=== PATIENT | female | born 1990 | race Hispanic/Latino ===

== ENCOUNTER 2024-07-23 08:26 | Inpatient (IN) | payer MEDICAID ==
[~2024-07-23] VITALS: Ht 163.8 cm; Wt 64.6 kg
[~2024-07-23 08:26] MED LIST: PREN-64 PO
--- NOTE | 2024-07-23 08:33 | NUR ---
PT JUST NOW PLACED IN MY HALLWAY C1
[2024-07-23 08:55] LABS: APPEARANCE,URINE CLEAR (CLEAR); BILIRUBIN,URINE NEGATIVE (NEGATIVE); COLOR,URINE YELLOW (YELLOW); GLUCOSE, URINE (UA) NEGATIVE (NEGATIVE); KETONES,URINE 60 mg/dL (NEGATIVE); LEUKOCYTE ESTERASE ,URINE NEGATIVE Leu/uL (NEGATIVE); NITRATE,URINE NEGATIVE (NEGATIVE); OCCULT BLOOD,URINE LARGE (NEGATIVE); PH,URINE 6.5 (5.0-8.0); PROTEIN,URINE 70 mg/dL (NEGATIVE)
[2024-07-23 09:00] LABS: ADD UA MICROSCOPIC YES
[2024-07-23 09:02] LABS: BACTERIA,URINE RARE /HPF (None Seen); MUCUS,URINE RARE LPF (None Seen); RBC,URINE TNTC /HPF (0-1); SQUAMOUS EPITHELIAL CELL,UR MOD /HPF (0-2)
[2024-07-23] MEDS: CEFTRIAXONE 2GM VIAL IVPB ONE (09:14)
[2024-07-23] MEDS: 0.9%NACL 1000ML 1,000 ML IV ONE (09:15)
[2024-07-23] MEDS: acetaMINOPHEN 500 MG TABLET PO ONE (09:24)
[2024-07-23] MEDS: acetaMINOPHEN 500 MG TABLET ONE (09:24)
[2024-07-23 09:25] LABS: INFLUENZA TYPE A Negative For Type A (NEGATIVE); INFLUENZA TYPE B Negative For Type B (NEGATIVE)
[2024-07-23 09:26] LABS: COVID19 (SARS ANTIGEN RAPID) PRESUMPTIVE NEGATIVE (NEGATIVE)
[2024-07-23 09:33] LABS: BASOPHILS # (AUTO) 0.01 K/uL (0.00-0.20); BASOPHILS % (AUTO) 0.1 % (0.0-5.0); HEMATOCRIT 41.5 % (36-48); IMMATURE GRANULOCYTE ABSOLUTE 0.03 K/uL (0-1); LYMPHOCYTES # (AUTO) 0.6 K/uL (1.0-4.8); LYMPHOCYTES % (AUTO) 7.4 % (21.0-51.0); MEAN CORPUSCULAR HEMOGLOBIN 30.4 pg (27.0-33.0); MEAN CORPUSCULAR VOLUME 89.4 fL (79-99); MONOCYTES # (AUTO) 0.3 K/uL (0.1-1.0); MONOCYTES % (AUTO) 4.4 % (3.0-13.0); NEUTROPHILS # (AUTO) 6.7 K/uL (1.8-7.7); NEUTROPHILS % (AUTO) 87.7 % (40.0-77.0); PLATELET COUNT (AUTO) 196 K/uL (130-400); RED BLOOD CELL COUNT(AUTO) 4.64 MIL/uL (4.00-5.50); RED CELL DISTRIBUTION WIDTH 11.9 % (11.0-15.5); WHITE BLOOD COUNT (AUTO) 7.7 K/uL (4.8-10.8)
[2024-07-23 09:37] LABS: CREATININE 0.8 mg/dL (0.5-1.0); POTASSIUM 3.9 mmol/L (3.5-5.1)
[2024-07-23 09:45] LABS: ALBUMIN 3.5 g/dL (3.5-5.0); BILIRUBIN,DIRECT 0.1 mg/dL (0.0-0.3); BILIRUBIN,TOTAL 0.3 mg/dL (0.2-1.0); TOTAL PROTEIN, SERUM 8.3 g/dL (6.0-8.3)
--- NOTE | 2024-07-23 10:57 | ERN ---
ED Note History of Present Illness Stated Complaint: COUGH\CONGESTION\FEVER Chief Complaint: Fever Time Seen by MD: 08:33 Dictation: 33 y/o F with no PHMx presenting to the emergency department with cough cold congestion and fever over the past six days was given Z-Nikos at home by primary care doctor however symptoms have not improved, worsening cough, no abdominal pain, generalized weakness and body aches. 8/10 symptoms. Allergies: Coded Allergies: No Known Drug Allergies (Unverified Allergy, Unknown, 05/09/15) Home Meds Reported Medications Vit #76/Iron,Carb/FA (Prenatabs Rx Tablet) 1 Each Tablet, 1 EACH PO DAILY, TAB 05/12/15 Past Medical History Past Medical History: No Pertinent History Surgical History: None LMP: Jul 23, 2024 : 1 Para: 1 Aborts: 0 Review of System Dictation Constitutional: Per HPI Eyes: Negative for injury, pain,redness, and discharge ENT: Negative for injury,pain or swelling Cardiovascular: Negative for chest pain, palpitations, and edema Respiratory: Per HPI Abdomen/GI: Negative for abdominal pain, nausea, vomiting, diarrhea, and constipation Back: Negative for injury and pain : Negative for injury, bleeding and discharge MS/Extremity: Negative for injury and deformity Skin: Negative for rash, and discoloration Neuro: Negative for headache, weakness, numbness, tingling, and seizure Psych: Negative for suicide ideation, homicidal ideation, and hallucinations Initial Vital Sign VS Vital Signs Date Time Temp Pulse Resp B/P (MAP) Pulse Ox O2 Delivery O2 Flow Rate FiO2 07/23/24 08:27 102.9 154 16 124/82 98 Room Air* 0 21 Physical Exam Dictation General: awake, alert, febrile Head/Face: Normocephalic, atraumatic Eyes: PERRL, EOMI, vision at baseline ENT: oral cavity clear, TMs clear, no signs of infection Neck: Trachea midline, supple, no nuchal rigidity Cardiovascular: Tachycardic, normal S1/S2, No MRGs, no JVD Respiratory: CTAB, no respiratory distress, No rales or wheezes Abdomen: Soft, non-tender, non-distended, normal bowel sounds, no guarding or rebound. Skin: Warm, dry, normal turgor, no rash MS/Extremity: Pulses equal, no cyanosis, neurovascular intact, FROM Neuro: COAx4, GCS 15, strength 5/5, CN 2-12 intact, normal cerebellar exam, normal gait, Psych: Normal behavior, mood, and affect normal Results (Laboratory/Radiology) Laboratory/Radiology Laboratory Tests Test 07/23/24 08:37 07/23/24 08:50 07/23/24 09:10 Urine Color YELLOW (YELLOW) Urine Appearance CLEAR (CLEAR) Urine pH 6.5 (5.0-8.0) Urine Specific [place] 1.024 (1.001-1.031) Urine Protein 70 mg/dL (NEGATIVE) H Urine Glucose (UA) NEGATIVE mg/dL (NEGATIVE) Urine Ketones 60 mg/dL (NEGATIVE) H Urine Occult Blood LARGE (NEGATIVE) H Urine Nitrate NEGATIVE (NEGATIVE) Urine Bilirubin NEGATIVE mg/dL (NEGATIVE) Urine Urobilinogen 2.0 mg/dL (0.2-1.0) H Urine Leukocyte Esterase NEGATIVE Arpit/uL Urine RBC TNTC /HPF (0-1) H Urine WBC 2-5 /HPF (0-1) H Urine Squamous Epithelial Cells MOD /HPF (0-2) Urine Bacteria RARE /HPF (None Seen) Urine HCG, Qualitative NEGATIVE (NEGATIVE) Influenza Type A Antigen Negative For Type A Influenza Type B Antigen Negative For Type B SARS-CoV-2 Antigen (Rapid) PRESUMPTIVE NEGATIVE White Blood Count 7.7 K/uL (4.8-10.8) Red Blood Count 4.64 MIL/uL (4.00-5.50) Hemoglobin 14.1 g/dL (12.0-16.0) Hematocrit 41.5 % (36-48) Mean Corpuscular Volume 89.4 fL (79-99) Mean Corpuscular Hemoglobin 30.4 pg (27.0-33.0) Mean Corpuscular Hemoglobin Concent 34.0 g/dL (32.0-36.0) Red Cell Distribution Width 11.9 % (11.0-15.5) Platelet Count 196 K/uL (130-400) Mean Platelet Volume 9.2 fL (7.5-10.5) Immature Granulocyte % (Auto) 0.4 % (0-1) Neutrophils (%) (Auto) 87.7 % (40.0-77.0) H Lymphocytes (%) (Auto) 7.4 % (21.0-51.0) L Monocytes (%) (Auto) 4.4 % (3.0-13.0) Eosinophils (%) (Auto) 0.0 % (0.0-8.0) Basophils (%) (Auto) 0.1 % (0.0-5.0) Neutrophils # (Auto) 6.7 K/uL (1.8-7.7) Lymphocytes # (Auto) 0.6 K/uL (1.0-4.8) L Monocytes # (Auto) 0.3 K/uL (0.1-1.0) Eosinophils # (Auto) 0.00 K/uL (0.00-0.70) Basophils # (Auto) 0.01 K/uL (0.00-0.20) Absolute Immature Granulocyte (auto 0.03 K/uL (0-1) Nucleated Red Blood Cells 0.0 % (0.0-0.19) Sodium Level 133 mmol/L (136-145) L Potassium Level 3.9 mmol/L (3.5-5.1) Chloride Level 96 mmol/L (101-111) L Carbon Dioxide Level 31 mmol/L (21-32) Blood Urea Nitrogen 10 mg/dL (7-18) Creatinine 0.8 mg/dL (0.5-1.0) Glomerular Filtration Rate Calc 101 mL/min (>90) Random Glucose 118 mg/dL (70-105) H Lactic Acid Level 1.3 mmol/L (0.8-2.5) Total Calcium 8.7 mg/dL (8.5-10.1) Total Bilirubin 0.3 mg/dL (0.2-1.0) Direct Bilirubin 0.1 mg/dL (0.0-0.3) Aspartate Amino Transf (AST/SGOT) 23 U/L (10-37) Alanine Aminotransferase (ALT/SGPT) 22 U/L (12-78) Alkaline Phosphatase 61 U/L (50-136) Total Protein 8.3 g/dL (6.0-8.3) Albumin 3.5 g/dL (3.5-5.0) Labs Reviewed?: Yes X-RAY Comment: Chest x-ray reviewed and interpreted by me shows multi lobar pneumonia to left upper lobe and right lower lobe. ED Course ED Course Orders Procedure Category Date Status Time Influenza Type A & B, LAB 07/23/24 Complete Rapid 08:32 Covid19 (Sars Antigen LAB 07/23/24 Complete Rapid) 08:32 Urinalysis Profile LAB 07/23/24 Complete 08:40 Chest 1vw RAD 07/23/24 Taken 09:00 Blood Cult DARIUSZ 07/23/24 In Process 09:00 Cbc With Differential LAB 07/23/24 In Process 09:00 Hepatic Function Panel LAB 07/23/24 Complete 09:00 Basic Metabolic Panel LAB 07/23/24 Complete 09:00 Lactic Acid LAB 07/23/24 Complete 09:00 ,Urine Test LAB 07/23/24 Complete 09:00 Ceftriaxone 2gm Vial PHA 07/23/24 Complete (Rocephin 2gm Inj) 09:00 0.9%Nacl 1000ml (Ns PHA 07/23/24 Complete 1000ml) 09:00 Acetaminophen 500mg PHA 07/23/24 Complete Tab (Tylenol 500mg T 09:30 Acetaminophen 500mg PHA 07/23/24 Complete Tab (Tylenol 500mg T 09:22 Current Medications Medications (Trade) Dose Ordered Sig/Carmine Route PRN Reason Start Time Stop Time Status Last Admin Dose Admin Acetaminophen (TYLenol 500MG TAB) 500 mg STK-MED ONCE .ROUTE 07/23/24 09:22 07/23/24 09:23 DC Acetaminophen (TYLenol 500MG TAB) 1,000 mg ONCE ONCE PO 07/23/24 09:30 07/23/24 09:31 DC 07/23/24 09:24 Ceftriaxone Sodium (Rocephin 2gm Inj) 2 gm ONCE ONCE IVPB 07/23/24 09:00 07/23/24 09:03 DC 07/23/24 09:14 Sodium Chloride 1,000 ml @ 0 mls/hr ONCE ONCE IV 07/23/24 09:00 07/23/24 09:03 DC 07/23/24 09:15 Vital Signs Date Time Temp Pulse Resp B/P (MAP) Pulse Ox O2 Delivery O2 Flow Rate FiO2 07/23/24 09:24 102.9 07/23/24 08:27 102.9 148 16 124/82 95 Room Air 0 07/23/24 08:27 102.9 154 16 124/82 98 Room Air* 0 21 Medical Decision Making MDM MDM: Differential diagnosis: Rationale: Tests considered and ordered secondary to shared decision making include: labs, ECG and radiology Previous outside records reviewed: Old ER visits. Risk of complication and/or morbidity or mortality of patient management: None Medications-Per medication reconciliation Need for hospitalization: Patient does meet criteria for hospitalization. Need for emergency major/minor surgery: No There are no social concerns with this patient. Prescription drug management Prescriptions will include symptomatic care Patient's prior external medical records from other ER visits were reviewed by me as indicated. Prior testing and results from previous visits were reviewed. Prior tests were taken into account with medical decision making and resource utilization, independent historian/historians were used to obtain complete medical history. I independently interpreted the test that were performed, results were reviewed by me and considered findings on radiology if ordered. Medical management and examination interpretation discussions were had by me with other qualified healthcare professionals as indicated for the patient's care. 33-year-old female with can be acquired pneumonia and concern for clinical sepsis, given IV fluids and antibiotics admitting for further care and evaluation. DX & DISP Disposition: Inpatient Departure Impression: Primary Impression: CAP (community acquired pneumonia) Additional Impression: Sepsis Condition: Stable Referrals: SELF,REFERRAL (PCP) RONN BENNETT MD Jul 23, 2024 10:57
--- NOTE | 2024-07-23 10:57 | NUR ---
DR TODD CURRENTLY AT BEDSIDE SPEAKING W/PT.
[2024-07-23] MEDS: 0.9%NACL 1000ML 1,503 ML IV ONE (11:25)
[2024-07-23] MEDS: PANTOPrazole 40 MG/VIAL IVP SCH (11:25)
[2024-07-23] MEDS: ondanSETRON 4MG INJ IVP PRN (11:25)
[2024-07-23] MEDS: AZITHROMYCIN 500MG+NS 250ML 250 ML IVPB SCH (11:26)
[2024-07-23 11:27] LABS: HEMOGLOBIN A1C 5.2 % (4.0-6.0)
--- NOTE | 2024-07-23 11:28 | HMCIMG ---
CHEST 1VW HISTORY: Fever COMPARISON: None FINDINGS: A frontal projection of the chest was obtained. Left perihilar and right lower lobe pulmonary infiltrates are seen. There is dextroscoliosis. Hyperexpansion of both lungs are seen. The heart is borderline enlarged. No evidence of aortic calcification is seen. IMPRESSION: 1. Left perihilar and right lower lobe pulmonary infiltrates.
[2024-07-23] MEDS ORDERED: COMPOUND IV REFRIGERATED 1 EACH IVSOLN MISC PRN (11:30)
[2024-07-23 11:34] LABS: THYROID STIMULATING HORMONE 0.49 uIU/mL (0.36-3.74)
--- NOTE | 2024-07-23 11:53 | NUR ---
NON SLIP SOCKS APPLIED TO PATIENTS FEET.
--- NOTE | 2024-07-23 12:00 | NUR ---
PULMONARY CONSULT: SPOKE TO KOKO FROM [facility]
--- NOTE | 2024-07-23 12:05 | NUR ---
MEAL TRAY SET UP FOR PT AND PT NOW PLACED IN ED BED 10
--- NOTE | 2024-07-23 12:10 | NUR ---
REPORT ENDORSED TO ITA CARRION
[2024-07-23 12:34] LABS: INR 1.1 (0.85-1.15); PROTHROMBIN TIME 11.8 SEC (9.6-11.6)
[2024-07-23 12:35] LABS: PARTIAL THROMBOPLASTIN TIME 36.6 SEC (26.3-35.5)
--- NOTE | 2024-07-23 12:36 | HP ---
[facility] HISTORY AND PHYSICAL Date of Service: Jul 23, 2024 Time of Service: 12:31 HISTORY OF PRESENT ILLNESS: Date of service: 07/23/2024, patient was seen in ER hallway C This is a 33-year-old with no significant past medical history who presented to the ER with chief complaint of cough, congestion, fevers for the past six days. Patient has been having productive cough with pleuritic chest pain which has been nonresolving. Oral intake has been poor and patient reports having nausea at home. She reports that her child was recently sick with mononucleosis. She denies previous history of pneumonia or pulmonary comorbidities. Reports having generalized fatigue, malaise, and asthenia. She has been having fevers daily. Denies any pets at home On presentation to the hospital, patient was noted to be febrile with T-max of 103, heart rate of 148, and blood pressure of 124/82. Labs on presentation showed WBC count of 7700, hemoglobin of 14.1, platelet count of 240213. CMP on presentation showed sodium of 133, potassium 3.9, chloride of 96, creatinine of 0.8, and normal liver function test. Chest x-ray showed significant right lower lobe infiltrates concerning for developing community-acquired pneumonia, patient also noted to have patchy infiltrate of the left upper lobe. Patient will be admitted for further management of multifocal community-acquired pneumonia with underlying sepsis. Patient will receive IV fluid resuscitation, broad-spectrum antibiotics, we will also request consultation with pulmonology this admission. REVIEW OF SYSTEMS CONSTITUTIONAL: Fevers, chills, malaise, asthenia, fatigue NEUROLOGICAL: Denies headache, amaurosis fugax, motor weakness, sensory deficit, vertigo/spinning sensation, gait abnormalities, or tremors. ENT: No hearing loss, otalgia, otorrhea, rhinitis, rhinorrhea, hoarseness, or sore throat. CARDIOVASCULAR: Denies any exertional angina, dyspnea on exertion, orthopnea, paroxysmal nocturnal dyspnea, palpitations, life-threatening arrhythmias, claudication. PULMONARY: Cough, congestion, pleurisy SLEEP: Denies morning headaches, daytime somnolence or napping. Denies difficulty falling asleep, staying asleep, waking from sleep. Denies knowledge of snoring. GASTROINTESTINAL: Denies any type of dysphagia to either liquids or solids. Denies nausea, vomiting, pyrosis, early satiety, abdominal pain, diarrhea, constipation, or changes in stool consistency or caliber. Denies coffee-ground emesis, hematemesis, hematochezia, or melanotic stools. GENITOURINARY: Denies frequency, urgency, nocturia, hematuria or incontinence (Storage/Irritative symptoms.) Low urinary stream, straining to void, urinary intermittency or hesitancy, splitting of the voiding stream, terminal dribbling. ENDOCRINOLOGIC: Denies polyuria, polydipsia, polyphagia or heat/cold intolerances. HEMATOLOGIC: Denies thrombophilia/previous clots, or coagulopathy/bleeding disorders. ONCOLOGIC: Denies personal history of malignancy. DERMATOLOGIC: Denies rashes or pruritus. PSYCHIATRIC: Denies any suicidal or homicidal ideation. Denies hallucinations. PAST MEDICAL HISTORY: Denies significant past medical history PAST SURGICAL HISTORY: Denies history of previous surgeries PAST SOCIAL HISTORY: Denies active smoking or alcohol consumption FAMILY HISTORY: Denies pertinent family history Allergies: Denies significant drug allergies Medications: Denies being on outpatient home medications Coded Allergies: No Known Drug Allergies (Unverified Allergy, Unknown, 05/09/15) PHYSICAL EXAM GENERAL APPEARANCE: The patient is awake, alert, and oriented, in no acute c ardiopulmonary distress. NEUROLOGICAL: Cranial nerves II-XII grossly intact. Motor is 5/5 in bilateral upper and lower extremities proximal to distal. No sensory deficits. HEENT: Face is symmetric. Pupils are equal and reactive. Extraocular movements are intact. NECK: Supple. No JVD. No thyromegaly. No submental, submandibular, pre- /postauricular, occipital or supraclavicular lymphadenopathy. CHEST: Normal chest expansion. No Telemetry. LUNGS: Decreased breath sound of the right lung base with crackles, rhonchorous breath sounds which clears with coughing CARDIOVASCULAR: Regular. S1 and S2 normal. No appreciable rubs, murmurs or gallops. ABDOMEN: Soft, nontender, and nondistended. There is no rebound, voluntary guarding, or rigidity. : Deferred. No Teixeira. EXTREMITIES: Non-edematous and not cyanotic. No clubbing. Good capillary refill. SKIN: No skin breakdown. Vital Sign (Last 24 Hours) 07/23/24 11:45 Temp 99.0 Pulse 101 Resp 17 B/P (MAP) 115/72 Pulse Ox 97 O2 Delivery Room Air* O2 Flow Rate 0 FiO2 21 LABS: Laboratory: Test 07/23/24 09:16 07/23/24 09:10 07/23/24 08:50 07/23/24 08:37 Range/Units Monoscreen NEGATIVE NEGATIVE White Blood Count 7.7 4.8-10.8 K/uL Red Blood Count 4.64 4.00-5.50 MIL/uL Hemoglobin 14.1 12.0-16.0 g/dL Hematocrit 41.5 36-48 % Mean Corpuscular Volume 89.4 79-99 fL Mean Corpuscular Hemoglobin 30.4 27.0-33.0 pg Mean Corpuscular Hemoglobin Concent 34.0 32.0-36.0 g/dL Red Cell Distribution Width 11.9 11.0-15.5 % Platelet Count 196 130-400 K/uL Mean Platelet Volume 9.2 7.5-10.5 fL Immature Granulocyte % (Auto) 0.4 0-1 % Neutrophils (%) (Auto) 87.7 H 40.0-77.0 % Lymphocytes (%) (Auto) 7.4 L 21.0-51.0 % Monocytes (%) (Auto) 4.4 3.0-13.0 % Eosinophils (%) (Auto) 0.0 0.0-8.0 % Basophils (%) (Auto) 0.1 0.0-5.0 % Neutrophils # (Auto) 6.7 1.8-7.7 K/uL Lymphocytes # (Auto) 0.6 L 1.0-4.8 K/uL Monocytes # (Auto) 0.3 0.1-1.0 K/uL Eosinophils # (Auto) 0.00 0.00-0.70 K/uL Basophils # (Auto) 0.01 0.00-0.20 K/uL Absolute Immature Granulocyte (auto 0.03 0-1 K/uL Nucleated Red Blood Cells 0.0 0.0-0.19 % White Cell Morphology Comment See comments Erythrocyte Sedimentation Rate 62 H 0-20 MM/HR Sodium Level 133 L 136-145 mmol/L Potassium Level 3.9 3.5-5.1 mmol/L Chloride Level 96 L 101-111 mmol/L Carbon Dioxide Level 31 21-32 mmol/L Blood Urea Nitrogen 10 7-18 mg/dL Creatinine 0.8 0.5-1.0 mg/dL Glomerular Filtration Rate Calc 101 >90 mL/min Random Glucose 118 H 70-105 mg/dL Hemoglobin A1c 5.2 4.0-6.0 % Estimated Average Glucose (eAG) 103 70-126 mg/dL Lactic Acid Level 1.3 0.8-2.5 mmol/L Total Calcium 8.7 8.5-10.1 mg/dL Total Bilirubin 0.3 0.2-1.0 mg/dL Direct Bilirubin 0.1 0.0-0.3 mg/dL Aspartate Amino Transf (AST/SGOT) 23 10-37 U/L Alanine Aminotransferase (ALT/SGPT) 22 12-78 U/L Alkaline Phosphatase 61 50-136 U/L C-Reactive Protein, Quantitative 139.30 H 0.5-3.0 mg/L Total Protein 8.3 6.0-8.3 g/dL Albumin 3.5 3.5-5.0 g/dL Procalcitonin 0.14 0.05-0.5 ng/mL Thyroid Stimulating Hormone (TSH) 0.49 0.36-3.74 uIU/mL Influenza Type A Antigen Negative For Type A NEGATIVE Influenza Type B Antigen Negative For Type B NEGATIVE SARS-CoV-2 Antigen (Rapid) PRESUMPTIVE NEGATIVE NEGATIVE Urine Color YELLOW YELLOW Urine Appearance CLEAR CLEAR Urine pH 6.5 5.0-8.0 Urine Specific [place] 1.024 1.001-1.031 Urine Protein 70 H NEGATIVE mg/dL Urine Glucose (UA) NEGATIVE NEGATIVE mg/dL Urine Ketones 60 H NEGATIVE mg/dL Urine Occult Blood LARGE H NEGATIVE Urine Nitrate NEGATIVE NEGATIVE Urine Bilirubin NEGATIVE NEGATIVE mg/dL Urine Urobilinogen 2.0 H 0.2-1.0 mg/dL Urine Leukocyte Esterase NEGATIVE NEGATIVE Arpit/uL Urine RBC TNTC H 0-1 /HPF Urine WBC 2-5 H 0-1 /HPF Urine Squamous Epithelial Cells MOD 0-2 /HPF Urine Bacteria RARE None Seen /HPF Urine HCG, Qualitative NEGATIVE NEGATIVE Current Medications Medications (Trade) Dose Ordered Sig/Carmine Route PRN Reason Start Time Stop Time Status Last Admin Dose Admin Acetaminophen (TYLenol 500MG TAB) 500 mg Q6H PRN PO MILD PAIN (1-3) 07/23/24 11:30 08/22/24 11:29 Albuterol (DUOneb) 1 udvial Q6H PRN IH SHORTNESS OF BREATH 07/23/24 11:30 08/22/24 11:29 Azithromycin 250 ml @ 250 mls/hr Q24H IVPB 07/23/24 11:30 08/02/24 11:29 07/23/24 11:26 250 MLS/HR Budesonide (Pulmicort 0.5 Mg/2ml) 0.5 mg Q12H IH 07/23/24 11:30 08/22/24 11:29 Ceftriaxone Sodium (Rocephin 2gm Inj) 2 gm DAILY IVPB 07/24/24 09:00 08/03/24 08:59 Guaifenesin/ Dextromethorphan (RobiTUSSin DM 200/20MG 10ML) 10 ml Q6H PRN PO COUGH 07/23/24 11:30 08/22/24 11:29 Ondansetron HCl (zoFRAN 4MG INJ) 4 mg Q6H PRN IVP NAUSEA/VOMITING 07/23/24 11:30 08/22/24 11:29 07/23/24 11:25 4 MG Pantoprazole Sodium (PROTonix 40MG INJ) 40 mg Q24H IVP 07/23/24 11:30 08/22/24 11:29 07/23/24 11:25 40 MG Sodium Chloride 1,000 ml @ 75 mls/hr [id number] IV 07/23/24 11:30 08/22/24 11:29 DIAGNOSTICS / RADIOLOGY: SERVICE 0900 REASON: fever ORDERING PHYSICIAN: RONN BENNETT MD PROCEDURE: CXR1VW - CHEST 1VW CHEST 1VW HISTORY: Fever COMPARISON: None FINDINGS: A frontal projection of the chest was obtained. Left perihilar and right lower lobe pulmonary infiltrates are seen. There is dextroscoliosis. Hyperexpansion of both lungs are seen. The heart is borderline enlarged. No evidence of aortic calcification is seen. IMPRESSION: 1. Left perihilar and right lower lobe pulmonary infiltrates. DICTATED BY: TOMASA ROLDAN MD DATE: 07/23/241124 ELECTRONICALLY SIGNED BY: TOMASA ROLDAN MD DATE: 07/23/241127 ASSESSMENT: Sepsis secondary to multifocal community-acquired pneumonia, POA Acute hypoxemic respiratory failure, POA Multifocal community-acquired pneumonia (R>L), POA Hyponatremia, POA Dehydration, POA PLAN: Patient will be admitted to cardiac telemetry floor Patient received sepsis bolus of fluid 30 mL/kg and we will start maintenance IV fluid of NS at 75 mL/hour broad-spectrum antibiotics with Rocephin/azithromycin Obtain sputum culture, blood cultures, respiratory culture, we will also check for urine Streptococcus pneumoniae antigen, Legionella antigen testing, mycoplasma and chlamydia serologies We will request consultation with pulmonology We will monitor closely for development of complications of parapneumonic effusion etc. We will start patient on scheduled Pulmicort and nebulizers q.6 hours p.r.n. We will advanced diet as tolerated All labs will be repeated in the morning Anticipate hospitalization for 48-72 hours pending cultures and clinical improvement of pneumonia and sepsis Prophylaxis Protonix, DVT prophylaxis with Lovenox Date of service: 07/23/2024, Prognosis: Guarded, Plan of care was discussed with patient at bedside, Vern Saunders MD Advanced Care Planning: Which of the following were discussed: Hospice care: Yes __ No _X_ Therapeutic options: Yes _X_ No __ Advance directives: Yes _X_ No __ Other discussions: Discussed with who?: Patient Voluntary nature of this service was explained to the patient? Yes _x_ No __ Amount of time spent: 20 minutes VERN SAUNDERS MD Jul 23, 2024 12:36
--- NOTE | 2024-07-23 12:46 | NUR ---
PULMONARY CONSULT: KOKO JOHNSON WAS JUST IN TO ASSESS AND INTERVIEW PT.
--- NOTE | 2024-07-23 13:03 | EKG ---
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
--- NOTE | 2024-07-23 14:01 | NUR ---
DCP: HOME Pt lives with her 9yro son in an apt. Her son is being cared for by his father while she is here. Pt's is in [place]. Pt states she is independent of all her ADLS, no DME or in home care services. Pt has no insurance or PCP. Sw provided community resources. Pt uses [facility] for rx. DCP is home Addendum: 07/23/24 at 1401 by FRANCISCO ROLDAN Amended: Links added.
[2024-07-23 14:29] VITALS: PULSE 97
[2024-07-23] MEDS: IpraTROPium/alBUTERol SULFATE 3 ML SOLUTION IH PRN (14:29)
[2024-07-23] MEDS: BUDESONIDE 0.5 MG/2 ML INH IH SCH (14:29)
[2024-07-23] MEDS: guaiFENesin-DM 200/20MG 10ML PO PRN (17:14)
[2024-07-23] MEDS: acetaMINOPHEN 500 MG TABLET PO PRN (17:15)
[2024-07-23] MEDS: 0.9%NACL 1000ML 1,000 ML IV SCH (17:15)
--- NOTE | 2024-07-23 17:30 | NUR ---
CALLED REPORT AND PRIMARY FLOOR NURSE RAMIN WILL CALL BACK IN 10 MIN
--- NOTE | 2024-07-23 18:14 | CONS ---
[facility] CONSULTATION NOTE Date Patient Seen: Jul 23, 2024 Time of Visit: 1330 Supervising Physician: Dr. Valerio Reason for Consultation: Multifocal pneumonia Inpatient Consults: BIS PROBLEM LIST: Sepsis secondary to multifocal community-acquired pneumonia, POA Acute hypoxemic respiratory failure, POA Multifocal community-acquired pneumonia (R>L), POA Hyponatremia, POA Dehydration, POA HPI: This is a 33-year-old with no significant past medical history who presented to the ER with chief complaint of cough, congestion, fevers for the past six days. Patient has been having productive cough with pleuritic chest pain which has been nonresolving. Oral intake has been poor and patient reports having nausea at home. She reports that her child was recently sick with mononucleosis. She denies previous history of pneumonia or pulmonary comorbidities. Reports having generalized fatigue, malaise, and asthenia. She has been having fevers daily. Denies any pets at home PATIENT WAS SEEN AND EXAMINED AT BEDSIDE WITH NO FAMILY PRESENT. PATIENT IS AWAKE ALERT ABLE TO ANSWER SIMPLE QUESTIONS APPROPRIATELY. PATIENT CURRENTLY ON ROOM AIR APPEARS TO BE TOLERATING WELL. PATIENT DENIES ANY CHEST PAIN OR OR SHORTNESS OF BREADTH AT THIS TIME. PATIENT DENIES ANY NAUSEA VOMITING OR AB DOMINAL PAIN. PER PATIENT HAS BEEN SICK FOR ABOUT FIVE DAYS WITH FEVER AND COUGH, DENIED GO SEE PCP STATED WAS TRYING TO WAIT IT OUT, UNTIL COULD NOT TOLERATE ANYMORE. PATIENT DENIES ANY MEDICAL HISTORY, PATIENT DOES REPORT HER SON BEING SICK WITH MONO. PULMONOLOGY WERE CONSULTED FOR MULTIFOCAL PNEUMONIA THANK YOU FOR ALLOWING US TO PARTICIPATE IN THE CARE OF THIS PATIENT WE WILL CONTINUE TO FOLLOW UP PATIENT IS IN THE HOSPITAL. RECOMMENDATIONS LISTED BELOW PLAN SUMMARY Continue Rocephin2 g daily Continue azithromycin 500 mg daily Continue budesonide 0.5 mg q.12 hours Continue breathing treatments as needed Continue to monitor respiratory status and maintain adequate oxygenation Keep O2 sats greater or equal to 90% Recommend obtaining HIV screen Rest of the care per primary team PAST MEDICAL HX: see above PAST SURGICAL HX: noncontributory SOCIAL HISTORY: No tobacco, ETOH, or illicit drug use Coded Allergies: No Known Drug Allergies (Unverified Allergy, Unknown, 05/09/15) REVIEW OF SYSTEMS: 12 point ROS reviewed with patient. Pertinent positives mentioned above. Otherwise negative. PHYSICAL EXAM: GENERAL: alert, weak, awake oriented x 3 HEENT: EOMI, Sclera non icteric, moist mucosa NECK: Supple, no JVD, trachea midline LUNGS: Clear breath sounds bilaterally. No wheezes HEART: Regular rate and rhythm. Normal S1 and S2, without murmurs ABD: Abdomen soft, nontender. Bowel sounds present EXT: No clubbing cyanosis or edema NEURO: Alert and oriented to person, follows commands Vital Signs (last 8hr) Date Time Temp Pulse Resp B/P (MAP) Pulse Ox O2 Delivery O2 Flow Rate FiO2 07/23/24 17:15 103.5 07/23/24 15:00 99.5 104 18 111/70 98 Room Air* 0 21 07/23/24 14:29 97 07/23/24 11:45 99.0 101 17 115/72 97 Room Air* 0 21 LABS: Hematology Labs: Test 07/23/24 09:10 Range/Units White Blood Count 7.7 4.8-10.8 K/uL Red Blood Count 4.64 4.00-5.50 MIL/uL Hemoglobin 14.1 12.0-16.0 g/dL Hematocrit 41.5 36-48 % Mean Corpuscular Volume 89.4 79-99 fL Mean Corpuscular Hemoglobin 30.4 27.0-33.0 pg Mean Corpuscular Hemoglobin Concent 34.0 32.0-36.0 g/dL Red Cell Distribution Width 11.9 11.0-15.5 % Platelet Count 196 130-400 K/uL Mean Platelet Volume 9.2 7.5-10.5 fL Immature Granulocyte % (Auto) 0.4 0-1 % Neutrophils (%) (Auto) 87.7 H 40.0-77.0 % Lymphocytes (%) (Auto) 7.4 L 21.0-51.0 % Monocytes (%) (Auto) 4.4 3.0-13.0 % Eosinophils (%) (Auto) 0.0 0.0-8.0 % Basophils (%) (Auto) 0.1 0.0-5.0 % Neutrophils # (Auto) 6.7 1.8-7.7 K/uL Lymphocytes # (Auto) 0.6 L 1.0-4.8 K/uL Monocytes # (Auto) 0.3 0.1-1.0 K/uL Eosinophils # (Auto) 0.00 0.00-0.70 K/uL Basophils # (Auto) 0.01 0.00-0.20 K/uL Absolute Immature Granulocyte (auto 0.03 0-1 K/uL Nucleated Red Blood Cells 0.0 0.0-0.19 % White Cell Morphology Comment See comments Erythrocyte Sedimentation Rate 62 H 0-20 MM/HR Chemistry Labs: Test 07/23/24 09:10 Range/Units Sodium Level 133 L 136-145 mmol/L Potassium Level 3.9 3.5-5.1 mmol/L Chloride Level 96 L 101-111 mmol/L Carbon Dioxide Level 31 21-32 mmol/L Blood Urea Nitrogen 10 7-18 mg/dL Creatinine 0.8 0.5-1.0 mg/dL Glomerular Filtration Rate Calc 101 >90 mL/min Random Glucose 118 H 70-105 mg/dL Hemoglobin A1c 5.2 4.0-6.0 % Estimated Average Glucose (eAG) 103 70-126 mg/dL Lactic Acid Level 1.3 0.8-2.5 mmol/L Total Calcium 8.7 8.5-10.1 mg/dL Total Bilirubin 0.3 0.2-1.0 mg/dL Direct Bilirubin 0.1 0.0-0.3 mg/dL Aspartate Amino Transf (AST/SGOT) 23 10-37 U/L Alanine Aminotransferase (ALT/SGPT) 22 12-78 U/L Alkaline Phosphatase 61 50-136 U/L C-Reactive Protein, Quantitative 139.30 H 0.5-3.0 mg/L Total Protein 8.3 6.0-8.3 g/dL Albumin 3.5 3.5-5.0 g/dL Procalcitonin 0.14 0.05-0.5 ng/mL Thyroid Stimulating Hormone (TSH) 0.49 0.36-3.74 uIU/mL Coagulation Labs: Test 07/23/24 11:31 Range/Units Prothrombin Time 11.8 H 9.6-11.6 SEC Prothromb Time International Ratio 1.10 0.85-1.15 Activated Partial Thromboplast Time 36.6 H 26.3-35.5 SEC DIAGNOSTICS / RADIOLOGY RESULTS: na PLAN NEURO: Minimize central acting medications as possible. Maintain fall precautions, adequate lighting during the day PULMONARY: Supplemental 02 as needed. Maintain aspiration precautions at all times CARDIOVASCULAR: Follow hemodynamics. Vital signs per facility protocol GI & NUTRITION: Continue with nutritional support. Continue stool softeners and laxatives as needed. KIDNEYS & ELECTROLYTES: Strict monitoring of intake, output and overall fluid balance. Avoid nephrotoxic medications to the extent possible. Medications to be dosed according to renal function. Monitor electrolytes and replace as needed ENDOCRINE: Maintain blood glucose between 100-180 at all times. Hypoglycemia protocol in place INFECTIOUS DISEASE: Trend temperature, WBC and procalcitonin level Follow cultures, deescalate antibiotics as soon as possible. Panculture if new onset fever ONCOLOGY/HEMATOLOGY/COAGULATION: Monitor for s/s of bleeding Monitor hemoglobin, coagulation studies as needed SKIN: Pressure ulcer prevention per facility protocol Specialty mattress ORTHO/REHAB: Continue PT/OT Prophylaxis: Continue GI and DVT prophylaxis Code Status: Full Resuscitation Disposition: Per primary team Other: Case discussed with supervising physician plan of care agreed upon JENAE MCKEON Jul 23, 2024 18:14
[2024-07-23 18:18] VITALS: O2SAT 96
[2024-07-23] MEDS: ketOROlac 15MG/ML VIAL (15MG/ML) IV PRN (18:38)
[2024-07-23 19:22] VITALS: BP 109/65; PULSE 104; RESP 16; TEMP 99.3
[2024-07-23 19:27] LABS: HIV 1&2 ANTIBODY Non-Reactive (Negative); HIV-1 p24 Antigen Non-Reactive (Negative)
[2024-07-23 19:31] VITALS: PULSE 96; RESP 18
[2024-07-23] MEDS: ENOXAPARIN SODIUM 40 MG/0.4 ML SYRINGE SQ SCH (20:45)
[2024-07-23 23:00] VITALS: BP 98/59; PULSE 86; RESP 16; TEMP 97.8
[2024-07-24] VITALS (13 sets, daily range): BP systolic 110–141; BP diastolic 62–99; PULSE 86–119; RESP 16–18; TEMP 97.6–100; O2SAT 96–98
[2024-07-24 06:51] LABS: ALBUMIN 2.5 g/dL (3.5-5.0); BILIRUBIN,TOTAL 0.1 mg/dL (0.2-1.0); CREATININE 0.6 mg/dL (0.5-1.0); MAGNESIUM 1.7 mg/dL (1.80-2.40); POTASSIUM 3.5 mmol/L (3.5-5.1); TOTAL PROTEIN, SERUM 5.9 g/dL (6.0-8.3)
[2024-07-24 07:36] LABS: BASOPHILS # (AUTO) 0.01 K/uL (0.00-0.20); BASOPHILS % (AUTO) 0.2 % (0.0-5.0); EOSINOPHILS # (AUTO) 0.01 K/uL (0.00-0.70); EOSINOPHILS % (AUTO) 0.2 % (0.0-8.0); HEMATOCRIT 34.5 % (36-48); IMMATURE GRANULOCYTE ABSOLUTE 0.02 K/uL (0-1); LYMPHOCYTES % (AUTO) 20.1 % (21.0-51.0); MEAN CORPUSCULAR HEMOGLOBIN 29.9 pg (27.0-33.0); MEAN CORPUSCULAR VOLUME 90.6 fL (79-99); MONOCYTES # (AUTO) 0.3 K/uL (0.1-1.0); NEUTROPHILS # (AUTO) 3.6 K/uL (1.8-7.7); NEUTROPHILS % (AUTO) 73.1 % (40.0-77.0); PLATELET COUNT (AUTO) 168 K/uL (130-400); RED BLOOD CELL COUNT(AUTO) 3.81 MIL/uL (4.00-5.50); WHITE BLOOD COUNT (AUTO) 4.9 K/uL (4.8-10.8)
[2024-07-24] MEDS: CEFTRIAXONE 2GM VIAL IVPB SCH (09:06)
--- NOTE | 2024-07-24 11:58 | HMCIMG ---
CHEST 1VW HISTORY: Pneumonia COMPARISON: 07/23/2024 FINDINGS: A frontal projection of the chest was obtained. Bilateral pulmonary infiltrates are seen. The heart is normal in size. No evidence of aortic calcification is seen. IMPRESSION: 1. Bilateral pulmonary infiltrates are seen.
--- NOTE | 2024-07-24 12:39 | PN ---
[facility] PROGRESS NOTE Date of Service: Jul 24, 2024 Time of Service: 12:12 SUBJECTIVE: 07/24/2024 The patient is a 33-year-old female with no significant past medical history who presented to the ER yesterday with complaints of cough associated with pleuritic chest pain. Upon arrival to the ER, she was febrile to 103 F, with a HR of 148 bpm and a blood pressure of 124/82 mmHg. She was admitted for multifocal community-acquired pneumonia with underlying sepsis. Initial treatment included Rocephin, Azithromycin, corticosteroids. Today, the patient reports significant improvement. She no longer experiences pleuritic chest pain, and her fever has resolved. On physical examination, her lungs are clear to auscultation bilaterally, and her vital signs are stable: BP 110/62, HR 86 bpm, RR 16 breaths/min, Temperature 97.9 F. Urine culture results returned negative for Legionella. Laboratory results showed a decrease in inflammatory markers, with a CRP of 93.4 (previously 139.3) and ESR of 62. Hemoglobin is mildly reduced at 11.4 (previously 14.1) All other labs were unremarkable. The patient is being observed for further improvement in her pulmonary infection. Treatment will continue and her response to therapy will be closely monitored. REVIEW OF SYSTEMS CONSTITUTIONAL: Alert, oriented, and non-toxic appearing. NEUROLOGICAL: Denies headache, amaurosis fugax, motor weakness, sensory deficit, vertigo/spinning sensation, gait abnormalities, or tremors. ENT: No hearing loss, otalgia, otorrhea, rhinitis, rhinorrhea, hoarseness, or sore throat. CARDIOVASCULAR: Denies any exertional angina, dyspnea on exertion, orthopnea, paroxysmal nocturnal dyspnea, palpitations, life-threatening arrhythmias, claudication. PULMONARY: Cough, congestion, pleurisy SLEEP: Denies morning headaches, daytime somnolence or napping. Denies difficulty falling asleep, staying asleep, waking from sleep. Denies knowledge of snoring. GASTROINTESTINAL: Denies any type of dysphagia to either liquids or solids. Denies nausea, vomiting, pyrosis, early satiety, abdominal pain, diarrhea, constipation, or changes in stool consistency or caliber. Denies coffee-ground emesis, hematemesis, hematochezia, or melanotic stools. GENITOURINARY: Denies frequency, urgency, nocturia, hematuria or incontinence (Storage/Irritative symptoms.) Low urinary stream, straining to void, urinary intermittency or hesitancy, splitting of the voiding stream, terminal dribbling. ENDOCRINOLOGIC: Denies polyuria, polydipsia, polyphagia or heat/cold intolerances. HEMATOLOGIC: Denies thrombophilia/previous clots, or coagulopathy/bleeding disorders. ONCOLOGIC: Denies personal history of malignancy. DERMATOLOGIC: Denies rashes or pruritus. PSYCHIATRIC: Denies any suicidal or homicidal ideation. Denies hallucinations. PHYSICAL EXAM GENERAL APPEARANCE: The patient is awake, alert, and oriented, in no acute cardiopulmonary distress. NEUROLOGICAL: Cranial nerves II-XII grossly intact. Motor is 5/5 in bilateral upper and lower extremities proximal to distal. No sensory deficits. HEENT: Face is symmetric. Pupils are equal and reactive. Extraocular movements are intact. NECK: Supple. No JVD. No thyromegaly. No submental, submandibular, pre- /postauricular, occipital or supraclavicular lymphadenopathy. CHEST: Normal chest expansion. No Telemetry. LUNGS: Decreased breath sound of the right lung base with crackles, rhonchorous breath sounds which clears with coughing CARDIOVASCULAR: Regular. S1 and S2 normal. No appreciable rubs, murmurs or gallops. ABDOMEN: Soft, nontender, and nondistended. There is no rebound, voluntary guarding, or rigidity. : Deferred. No [place]. EXTREMITIES: Non-edematous and not cyanotic. No clubbing. Good capillary refill. SKIN: No skin breakdown. Vital Signs (last 8hr) Date Time Temp Pulse Resp B/P (MAP) Pulse Ox O2 Delivery O2 Flow Rate FiO2 07/24/24 08:13 97.9 86 16 110/62 99 Room Air 07/24/24 07:43 93 18 N/A Room Air 21 07/24/24 07:36 95 18 07/24/24 07:00 96 Room Air* 0 07/24/24 04:17 99.0 LABS: Laboratory: Test 07/24/24 07:23 07/24/24 06:10 07/23/24 11:31 07/23/24 09:16 Range/Units White Blood Count 4.9 # 4.8-10.8 K/uL Red Blood Count 3.81 L 4.00-5.50 MIL/uL Hemoglobin 11.4 L 12.0-16.0 g/dL Hematocrit 34.5 L 36-48 % Mean Corpuscular Volume 90.6 79-99 fL Mean Corpuscular Hemoglobin 29.9 27.0-33.0 pg Mean Corpuscular Hemoglobin Concent 33.0 32.0-36.0 g/dL Red Cell Distribution Width 12.0 11.0-15.5 % Platelet Count 168 130-400 K/uL Mean Platelet Volume 9.2 7.5-10.5 fL Immature Granulocyte % (Auto) 0.4 0-1 % Neutrophils (%) (Auto) 73.1 40.0-77.0 % Lymphocytes (%) (Auto) 20.1 L 21.0-51.0 % Monocytes (%) (Auto) 6.0 3.0-13.0 % Eosinophils (%) (Auto) 0.2 0.0-8.0 % Basophils (%) (Auto) 0.2 0.0-5.0 % Neutrophils # (Auto) 3.6 1.8-7.7 K/uL Lymphocytes # (Auto) 1.0 1.0-4.8 K/uL Monocytes # (Auto) 0.3 0.1-1.0 K/uL Eosinophils # (Auto) 0.01 0.00-0.70 K/uL Basophils # (Auto) 0.01 0.00-0.20 K/uL Absolute Immature Granulocyte (auto 0.02 0-1 K/uL Nucleated Red Blood Cells 0.0 0.0-0.19 % Sodium Level 140 136-145 mmol/L Potassium Level 3.5 3.5-5.1 mmol/L Chloride Level 106 101-111 mmol/L Carbon Dioxide Level 28 21-32 mmol/L Blood Urea Nitrogen 4 L 7-18 mg/dL Creatinine 0.6 0.5-1.0 mg/dL Glomerular Filtration Rate Calc 123 >90 mL/min Random Glucose 95 70-105 mg/dL Total Calcium 7.8 L 8.5-10.1 mg/dL Magnesium Level 1.70 L 1.80-2.40 mg/dL Total Bilirubin 0.1 #L 0.2-1.0 mg/dL Aspartate Amino Transf (AST/SGOT) 21 10-37 U/L Alanine Aminotransferase (ALT/SGPT) 14 # 12-78 U/L Alkaline Phosphatase 41 #L 50-136 U/L C-Reactive Protein, Quantitative 93.40 H 0.5-3.0 mg/L Total Protein 5.9 #L 6.0-8.3 g/dL Albumin 2.5 #L 3.5-5.0 g/dL Prothrombin Time 11.8 H 9.6-11.6 SEC Prothromb Time International Ratio 1.10 0.85-1.15 Activated Partial Thromboplast Time 36.6 H 26.3-35.5 SEC HIV (1&2) Antibody Non-Reactive Negative HIV P24 Antigen, Qualitative Non-Reactive Negative Monoscreen NEGATIVE NEGATIVE Test 07/23/24 09:10 07/23/24 08:50 07/23/24 08:37 Range/Units White Cell Morphology Comment See comments Erythrocyte Sedimentation Rate 62 H 0-20 MM/HR Hemoglobin A1c 5.2 4.0-6.0 % Estimated Average Glucose (eAG) 103 70-126 mg/dL Lactic Acid Level 1.3 0.8-2.5 mmol/L Direct Bilirubin 0.1 0.0-0.3 mg/dL Procalcitonin 0.14 0.05-0.5 ng/mL Thyroid Stimulating Hormone (TSH) 0.49 0.36-3.74 uIU/mL Influenza Type A Antigen Negative For Type A NEGATIVE Influenza Type B Antigen Negative For Type B NEGATIVE SARS-CoV-2 Antigen (Rapid) PRESUMPTIVE NEGATIVE NEGATIVE Urine Color YELLOW YELLOW Urine Appearance CLEAR CLEAR Urine pH 6.5 5.0-8.0 Urine Specific [place] 1.024 1.001-1.031 Urine Protein 70 H NEGATIVE mg/dL Urine Glucose (UA) NEGATIVE NEGATIVE mg/dL Urine Ketones 60 H NEGATIVE mg/dL Urine Occult Blood LARGE H NEGATIVE Urine Nitrate NEGATIVE NEGATIVE Urine Bilirubin NEGATIVE NEGATIVE mg/dL Urine Urobilinogen 2.0 H 0.2-1.0 mg/dL Urine Leukocyte Esterase NEGATIVE NEGATIVE Arpit/uL Urine RBC TNTC H 0-1 /HPF Urine WBC 2-5 H 0-1 /HPF Urine Squamous Epithelial Cells MOD 0-2 /HPF Urine Bacteria RARE None Seen /HPF Urine HCG, Qualitative NEGATIVE NEGATIVE Current Medications Medications (Trade) Dose Ordered Sig/Carmine Route PRN Reason Start Time Stop Time Status Last Admin Dose Admin Acetaminophen (TYLenol 500MG TAB) 500 mg Q6H PRN PO MILD PAIN (1-3) 07/23/24 11:30 08/22/24 11:29 07/24/24 02:52 500 MG Albuterol (DUOneb) 1 udvial Q6H PRN IH SHORTNESS OF BREATH 07/23/24 11:30 08/22/24 11:29 07/24/24 07:34 1 UDVIAL Azithromycin 250 ml @ 250 mls/hr Q24H IVPB 07/23/24 11:30 08/02/24 11:29 07/24/24 11:47 250 MLS/HR Budesonide (Pulmicort 0.5 Mg/2ml) 0.5 mg Q12H IH 07/23/24 11:30 08/22/24 11:29 07/24/24 07:34 0.5 MG Ceftriaxone Sodium (Rocephin 2gm Inj) 2 gm DAILY IVPB 07/24/24 09:00 08/03/24 08:59 07/24/24 09:06 2 GM Enoxaparin Sodium (Lovenox) 40 mg HS SQ 07/23/24 21:00 08/22/24 20:59 07/23/24 20:45 40 MG Guaifenesin/ Dextromethorphan (RobiTUSSin DM 200/20MG 10ML) 10 ml Q6H PRN PO COUGH 07/23/24 11:30 08/22/24 11:29 07/23/24 17:14 10 ML Ketorolac Tromethamine (toRADol) 15 mg Q12H PRN IV MODERATE PAIN (4-6) 07/23/24 18:30 07/26/24 18:30 07/24/24 07:06 15 MG Ondansetron HCl (zoFRAN 4MG INJ) 4 mg Q6H PRN IVP NAUSEA/VOMITING 07/23/24 11:30 08/22/24 11:29 07/23/24 11:25 4 MG Pantoprazole Sodium (PROTonix 40MG INJ) 40 mg Q24H IVP 07/23/24 11:30 08/22/24 11:29 07/24/24 11:46 40 MG Sodium Chloride 1,000 ml @ 75 mls/hr [id number] IV 07/23/24 11:30 08/22/24 11:29 07/24/24 04:06 75 MLS/HR DIAGNOSTICS / RADIOLOGY: PATIENT: VIOLET GEORGES MR#: [id number] : 1990 SEX: F AGE: 33 LOCATION: 2A ORDER 230 STATUS: ADM IN REPORT#: [id number] SERVICE 0600 REASON: assess for any interval worsening pnuemonia or pleural effusion ORDERING PHYSICIAN: TORRI TODD MD PROCEDURE: CXR1VW - CHEST 1VW CHEST 1VW HISTORY: Pneumonia COMPARISON: 07/23/2024 FINDINGS: A frontal projection of the chest was obtained. Bilateral pulmonary infiltrates are seen. The heart is normal in size. No evidence of aortic calcification is seen. IMPRESSION: 1. Bilateral pulmonary infiltrates are seen. DICTATED BY: TOMASA ROLDAN MD DATE: 07/24/241154 ELECTRONICALLY SIGNED BY: TOMASA ROLDAN MD DATE: 07/24/24 115 ASSESSMENT: Sepsis secondary to multifocal community-acquired pneumonia, POA Acute hypoxemic respiratory failure, POA Multifocal community-acquired pneumonia (R>L), POA Hyponatremia, POA Dehydration, POA PLAN: Patient will be admitted to cardiac telemetry floor Patient received sepsis bolus of fluid 30 mL/kg and we will start maintenance IV fluid of NS at 75 mL/hour broad-spectrum antibiotics with Rocephin/azithromycin We will continue recommendation from pulmonology continue monitor closely for development of complications of parapneumonic effusion etc. continue patient on scheduled Pulmicort and nebulizers q.6 hours p.r.n. All labs will be repeated in the morning Anticipate hospitalization for 48-72 hours pending cultures and clinical improvement of pneumonia and sepsis Prophylaxis Protonix, DVT prophylaxis with Lovenox ATTESTATION BY PHYSICIAN I have seen and examined the patient. I reviewed the documentation, medical decision making, and treatment plan as noted by the resident provider above. I agree with the findings and plan of care. Julia Griffin MD, GERARDO MD Jul 24, 2024 12:39
--- NOTE | 2024-07-24 15:32 | PN ---
[facility] PROGRESS NOTE Date Patient Seen: Jul 24, 2024 Time of Visit: 1137 Supervising Physician: Dr. Valerio Inpatient Consults: BIS PROBLEM LIST: Sepsis secondary to multifocal community-acquired pneumonia, POA Acute hypoxemic respiratory failure, POA Multifocal community-acquired pneumonia (R>L), POA Hyponatremia, POA Dehydration, POA INTERVAL HISTORY: 07/24 patient was seen examined at bedside with family present. Patient is awake alert able to answer simple questions appropriately. Patient is appears to be at visit patient denies chest pain or shortness of breadth. Denies nausea vomiting or abdominal pain. Patient states feeling better. Patient's CBC BNP. Patient's HIV screen nonreactive. Patient's mono screen negative. Patient to continue on IV antibiotics Rocephin2 g daily, azithromycin 500 mg daily. Blood cultures have been negative x1 day. From a pulmonary standpoint patient has remained stable is on room air. At this time pulmonary we will sign off thank you for us to participate care of this patient feel free to reconsult with any change in condition. Patient can be discharged on oral antibiotics Levaquin 750 mg to complete total of seven days. PLAN SUMMARY From a pulmonary standpoint patient has remained stable therefore this time pulmonology to sign off feel free to reconsult with any change in condition Patient can be discharged on oral Levaquin 750 mg daily to complete a total of seven days, 6 minute walk prior to discharge Continue Rocephin2 g daily Continue azithromycin 500 mg daily Continue budesonide 0.5 mg q.12 hours Continue breathing treatments as needed Continue to monitor respiratory status and maintain adequate oxygenation Keep O2 sats greater or equal to 90% Rest of the care per primary team REVIEW OF SYSTEMS: 12 point ROS reviewed with patient. Pertinent positives mentioned above. Otherwise negative. PHYSICAL EXAM: GENERAL: alert, weak, awake oriented x 3 HEENT: EOMI, Sclera non icteric, moist mucosa NECK: Supple, no JVD, trachea midline LUNGS: Clear breath sounds bilaterally. No wheezes HEART: Regular rate and rhythm. Normal S1 and S2, without murmurs ABD: Abdomen soft, nontender. Bowel sounds present EXT: No clubbing cyanosis or edema NEURO: Alert and oriented to person, follows commands Vital Signs (last 8hr) Date Time Temp Pulse Resp B/P (MAP) Pulse Ox O2 Delivery O2 Flow Rate FiO2 07/24/24 14:53 100.9 07/24/24 12:29 97.5 94 16 121/77 98 Room Air 07/24/24 08:13 97.9 86 16 110/62 99 Room Air 07/24/24 07:43 93 18 N/A Room Air 21 07/24/24 07:36 95 18 LABS: Hematology Labs: Test 07/24/24 07:23 07/23/24 09:10 Range/Units White Blood Count 4.9 # 4.8-10.8 K/uL Red Blood Count 3.81 L 4.00-5.50 MIL/uL Hemoglobin 11.4 L 12.0-16.0 g/dL Hematocrit 34.5 L 36-48 % Mean Corpuscular Volume 90.6 79-99 fL Mean Corpuscular Hemoglobin 29.9 27.0-33.0 pg Mean Corpuscular Hemoglobin Concent 33.0 32.0-36.0 g/dL Red Cell Distribution Width 12.0 11.0-15.5 % Platelet Count 168 130-400 K/uL Mean Platelet Volume 9.2 7.5-10.5 fL Immature Granulocyte % (Auto) 0.4 0-1 % Neutrophils (%) (Auto) 73.1 40.0-77.0 % Lymphocytes (%) (Auto) 20.1 L 21.0-51.0 % Monocytes (%) (Auto) 6.0 3.0-13.0 % Eosinophils (%) (Auto) 0.2 0.0-8.0 % Basophils (%) (Auto) 0.2 0.0-5.0 % Neutrophils # (Auto) 3.6 1.8-7.7 K/uL Lymphocytes # (Auto) 1.0 1.0-4.8 K/uL Monocytes # (Auto) 0.3 0.1-1.0 K/uL Eosinophils # (Auto) 0.01 0.00-0.70 K/uL Basophils # (Auto) 0.01 0.00-0.20 K/uL Absolute Immature Granulocyte (auto 0.02 0-1 K/uL Nucleated Red Blood Cells 0.0 0.0-0.19 % White Cell Morphology Comment See comments Erythrocyte Sedimentation Rate 62 H 0-20 MM/HR Chemistry Labs: Test 07/24/24 06:10 07/23/24 09:10 Range/Units Sodium Level 140 136-145 mmol/L Potassium Level 3.5 3.5-5.1 mmol/L Chloride Level 106 101-111 mmol/L Carbon Dioxide Level 28 21-32 mmol/L Blood Urea Nitrogen 4 L 7-18 mg/dL Creatinine 0.6 0.5-1.0 mg/dL Glomerular Filtration Rate Calc 123 >90 mL/min Random Glucose 95 70-105 mg/dL Total Calcium 7.8 L 8.5-10.1 mg/dL Magnesium Level 1.70 L 1.80-2.40 mg/dL Total Bilirubin 0.1 #L 0.2-1.0 mg/dL Aspartate Amino Transf (AST/SGOT) 21 10-37 U/L Alanine Aminotransferase (ALT/SGPT) 14 # 12-78 U/L Alkaline Phosphatase 41 #L 50-136 U/L C-Reactive Protein, Quantitative 93.40 H 0.5-3.0 mg/L Total Protein 5.9 #L 6.0-8.3 g/dL Albumin 2.5 #L 3.5-5.0 g/dL Hemoglobin A1c 5.2 4.0-6.0 % Estimated Average Glucose (eAG) 103 70-126 mg/dL Lactic Acid Level 1.3 0.8-2.5 mmol/L Direct Bilirubin 0.1 0.0-0.3 mg/dL Procalcitonin 0.14 0.05-0.5 ng/mL Thyroid Stimulating Hormone (TSH) 0.49 0.36-3.74 uIU/mL Coagulation Labs: Test 07/23/24 11:31 Range/Units Prothrombin Time 11.8 H 9.6-11.6 SEC Prothromb Time International Ratio 1.10 0.85-1.15 Activated Partial Thromboplast Time 36.6 H 26.3-35.5 SEC DIAGNOSTICS / RADIOLOGY RESULTS: na PLAN NEURO: Minimize central acting medications as possible. Maintain fall precautions, adequate lighting during the day PULMONARY: Supplemental 02 as needed. Maintain aspiration precautions at all times CARDIOVASCULAR: Follow hemodynamics. Vital signs per facility protocol GI & NUTRITION: Continue with nutritional support. Continue stool softeners and laxatives as needed. KIDNEYS & ELECTROLYTES: Strict monitoring of intake, output and overall fluid balance. Avoid nephrotoxic medications to the extent possible. Medications to be dosed according to renal function. Monitor electrolytes and replace as needed ENDOCRINE: Maintain blood glucose between 100-180 at all times. Hypoglycemia protocol in place INFECTIOUS DISEASE: Trend temperature, WBC and procalcitonin level Follow cultures, deescalate antibiotics as soon as possible. Panculture if new onset fever ONCOLOGY/HEMATOLOGY/COAGULATION: Monitor for s/s of bleeding Monitor hemoglobin, coagulation studies as needed SKIN: Pressure ulcer prevention per facility protocol Specialty mattress ORTHO/REHAB: Continue PT/OT Prophylaxis: Continue GI and DVT prophylaxis Code Status: Full Resuscitation Disposition: Per primary team Other: Case discussed with supervising physician plan of care agreed upon JENAE MCKEON Jul 24, 2024 15:32
[2024-07-25] VITALS (10 sets, daily range): BP systolic 102–120; BP diastolic 67–74; PULSE 69–106; RESP 16–20; TEMP 98–98.7; O2SAT 94–97
--- NOTE | 2024-07-25 14:51 | PN ---
[facility] PROGRESS NOTE Date of Service: Jul 25, 2024 Time of Service: 14:46 SUBJECTIVE: 07/24/2024 The patient is a 33-year-old female with no significant past medical history who presented to the ER yesterday with complaints of cough associated with pleuritic chest pain. Upon arrival to the ER, she was febrile to 103 F, with a HR of 148 bpm and a blood pressure of 124/82 mmHg. She was admitted for multifocal community-acquired pneumonia with underlying sepsis. Initial treatment included Rocephin, Azithromycin, corticosteroids. Today, the patient reports significant improvement. She no longer experiences pleuritic chest pain, and her fever has resolved. On physical examination, her lungs are clear to auscultation bilaterally, and her vital signs are stable: BP 110/62, HR 86 bpm, RR 16 breaths/min, Temperature 97.9 F. Urine culture results returned negative for Legionella. Laboratory results showed a decrease in inflammatory markers, with a CRP of 93.4 (previously 139.3) and ESR of 62. Hemoglobin is mildly reduced at 11.4 (previously 14.1) All other labs were unremarkable. The patient is being observed for further improvement in her pulmonary infection. Treatment will continue and her response to therapy will be closely monitored. 07/25 patient was evaluated this morning, she is feeling a lot better but she complained off burning sensation during azithromycin infusion. We will stop azithromycin and switched to p.o.. Patient now afebrile. WBC within normal limits. REVIEW OF SYSTEMS CONSTITUTIONAL: Alert, oriented, and non-toxic appearing. NEUROLOGICAL: Denies headache, amaurosis fugax, motor weakness, sensory deficit, vertigo/spinning sensation, gait abnormalities, or tremors. ENT: No hearing loss, otalgia, otorrhea, rhinitis, rhinorrhea, hoarseness, or sore throat. CARDIOVASCULAR: Denies any exertional angina, dyspnea on exertion, orthopnea, paroxysmal nocturnal dyspnea, palpitations, life-threatening arrhythmias, claudication. PULMONARY: Cough, congestion, pleurisy SLEEP: Denies morning headaches, daytime somnolence or napping. Denies difficulty falling asleep, staying asleep, waking from sleep. Denies knowledge of snoring. GASTROINTESTINAL: Denies any type of dysphagia to either liquids or solids. Denies nausea, vomiting, pyrosis, early satiety, abdominal pain, diarrhea, constipation, or changes in stool consistency or caliber. Denies coffee-ground emesis, hematemesis, hematochezia, or melanotic stools. GENITOURINARY: Denies frequency, urgency, nocturia, hematuria or incontinence (Storage/Irritative symptoms.) Low urinary stream, straining to void, urinary intermittency or hesitancy, splitting of the voiding stream, terminal dribbling. ENDOCRINOLOGIC: Denies polyuria, polydipsia, polyphagia or heat/cold intolerances. HEMATOLOGIC: Denies thrombophilia/previous clots, or coagulopathy/bleeding disorders. ONCOLOGIC: Denies personal history of malignancy. DERMATOLOGIC: Denies rashes or pruritus. PSYCHIATRIC: Denies any suicidal or homicidal ideation. Denies hallucinations. PHYSICAL EXAM GENERAL APPEARANCE: The patient is awake, alert, and oriented, in no acute cardiopulmonary distress. NEUROLOGICAL: Cranial nerves II-XII grossly intact. Motor is 5/5 in bilateral upper and lower extremities proximal to distal. No sensory deficits. HEENT: Face is symmetric. Pupils are equal and reactive. Extraocular movements are intact. NECK: Supple. No JVD. No thyromegaly. No submental, submandibular, pre- /postauricular, occipital or supraclavicular lymphadenopathy. CHEST: Normal chest expansion. No Telemetry. LUNGS: Decreased breath sound of the right lung base with crackles, rhonchorous breath sounds which clears with coughing CARDIOVASCULAR: Regular. S1 and S2 normal. No appreciable rubs, murmurs or gallops. ABDOMEN: Soft, nontender, and nondistended. There is no rebound, voluntary guarding, or rigidity. : Deferred. No Teixeira. EXTREMITIES: Non-edematous and not cyanotic. No clubbing. Good capillary refill. SKIN: No skin breakdown. Vital Signs (last 8hr) Date Time Temp Pulse Resp B/P (MAP) Pulse Ox O2 Delivery O2 Flow Rate FiO2 07/25/24 12:00 98.1 91 18 119/74 96 Room Air 21 07/25/24 08:00 98.2 89 18 109/67 94 Room Air 21 07/25/24 08:00 94 Room Air* 0 21 07/25/24 07:20 97 07/25/24 07:20 97 18 N/A Room Air 21 LABS: Laboratory: Test 07/24/24 07:23 12/6/24 06:10 Range/Units White Blood Count 4.9 # 4.8-10.8 K/uL Red Blood Count 3.81 L 4.00-5.50 MIL/uL Hemoglobin 11.4 L 12.0-16.0 g/dL Hematocrit 34.5 L 36-48 % Mean Corpuscular Volume 90.6 79-99 fL Mean Corpuscular Hemoglobin 29.9 27.0-33.0 pg Mean Corpuscular Hemoglobin Concent 33.0 32.0-36.0 g/dL Red Cell Distribution Width 12.0 11.0-15.5 % Platelet Count 168 130-400 K/uL Mean Platelet Volume 9.2 7.5-10.5 fL Immature Granulocyte % (Auto) 0.4 0-1 % Neutrophils (%) (Auto) 73.1 40.0-77.0 % Lymphocytes (%) (Auto) 20.1 L 21.0-51.0 % Monocytes (%) (Auto) 6.0 3.0-13.0 % Eosinophils (%) (Auto) 0.2 0.0-8.0 % Basophils (%) (Auto) 0.2 0.0-5.0 % Neutrophils # (Auto) 3.6 1.8-7.7 K/uL Lymphocytes # (Auto) 1.0 1.0-4.8 K/uL Monocytes # (Auto) 0.3 0.1-1.0 K/uL Eosinophils # (Auto) 0.01 0.00-0.70 K/uL Basophils # (Auto) 0.01 0.00-0.20 K/uL Absolute Immature Granulocyte (auto 0.02 0-1 K/uL Nucleated Red Blood Cells 0.0 0.0-0.19 % Sodium Level 140 136-145 mmol/L Potassium Level 3.5 3.5-5.1 mmol/L Chloride Level 106 101-111 mmol/L Carbon Dioxide Level 28 21-32 mmol/L Blood Urea Nitrogen 4 L 7-18 mg/dL Creatinine 0.6 0.5-1.0 mg/dL Glomerular Filtration Rate Calc 123 >90 mL/min Random Glucose 95 70-105 mg/dL Total Calcium 7.8 L 8.5-10.1 mg/dL Magnesium Level 1.70 L 1.80-2.40 mg/dL Total Bilirubin 0.1 #L 0.2-1.0 mg/dL Aspartate Amino Transf (AST/SGOT) 21 10-37 U/L Alanine Aminotransferase (ALT/SGPT) 14 # 12-78 U/L Alkaline Phosphatase 41 #L 50-136 U/L C-Reactive Protein, Quantitative 93.40 H 0.5-3.0 mg/L Total Protein 5.9 #L 6.0-8.3 g/dL Albumin 2.5 #L 3.5-5.0 g/dL Current Medications Medications (Trade) Dose Ordered Sig/Carmine Route PRN Reason Start Time Stop Time Status Last Admin Dose Admin Acetaminophen (TYLenol 500MG TAB) 500 mg Q6H PRN PO MILD PAIN (1-3) 07/23/24 11:30 08/22/24 11:29 07/24/24 14:53 500 MG Albuterol (DUOneb) 1 udvial Q6H PRN IH SHORTNESS OF BREATH 07/23/24 11:30 08/22/24 11:29 07/24/24 07:34 1 UDVIAL Azithromycin 250 ml @ 250 mls/hr Q24H IVPB 07/23/24 11:30 07/25/24 13:46 DC 07/25/24 12:04 250 MLS/HR Budesonide (Pulmicort 0.5 Mg/2ml) 0.5 mg Q12H IH 07/23/24 11:30 08/22/24 11:29 07/25/24 07:18 0.5 MG Ceftriaxone Sodium (Rocephin 2gm Inj) 2 gm DAILY IVPB 07/24/24 09:00 08/03/24 08:59 07/25/24 09:23 2 GM Enoxaparin Sodium (Lovenox) 40 mg HS SQ 07/23/24 21:00 08/22/24 20:59 07/24/24 21:51 40 MG Guaifenesin/ Dextromethorphan (RobiTUSSin DM 200/20MG 10ML) 10 ml Q6H PRN PO COUGH 07/23/24 11:30 08/22/24 11:29 07/23/24 17:14 10 ML Ketorolac Tromethamine (toRADol) 15 mg Q12H PRN IV MODERATE PAIN (4-6) 07/23/24 18:30 07/26/24 18:30 07/24/24 07:06 15 MG Ondansetron HCl (zoFRAN 4MG INJ) 4 mg Q6H PRN IVP NAUSEA/VOMITING 07/23/24 11:30 08/22/24 11:29 07/23/24 11:25 4 MG Pantoprazole Sodium (PROTonix 40MG INJ) 40 mg Q24H IVP 07/23/24 11:30 08/22/24 11:29 07/25/24 12:04 40 MG Sodium Chloride 1,000 ml @ 75 mls/hr [id number] IV 07/23/24 11:30 08/22/24 11:29 07/24/24 04:06 75 MLS/HR DIAGNOSTICS / RADIOLOGY: [ ] ASSESSMENT: Sepsis secondary to multifocal community-acquired pneumonia, POA Acute hypoxemic respiratory failure, POA Multifocal community-acquired pneumonia (R>L), POA Hyponatremia, POA Dehydration, POA PLAN: Patient has been downgraded to medical floor Continue with IV fluids We will discontinue azithromycin IV but continue with Rocephin IV We will start patient on azithromycin 500 mg p.o. x2 days We will continue recommendation from pulmonology continue monitor closely for development of complications of parapneumonic effusion etc. continue patient on scheduled Pulmicort and nebulizers q.6 hours p.r.n. All labs will be repeated in the morning Anticipate hospitalization for 48-72 hours pending cultures and clinical improvement of pneumonia and sepsis Prophylaxis Protonix, DVT prophylaxis with Lovenox Patient was seen in and examined in her room, discussed plan with Dr. German during rounds, above plan was formulated ATTESTATION BY PHYSICIAN I have seen and examined the patient. I reviewed the documentation, medical decision making, and treatment plan as noted by the mid-level provider above. I agree with the findings and plan of care. KATELYN GERMAN MD, [facility] Jul 25, 2024 14:51
[2024-07-25] MEDS: AZITHROMYCIN 250 MG TABLET PO SCH (14:56)
[2024-07-26] VITALS (7 sets, daily range): BP systolic 102–111; BP diastolic 69–74; PULSE 71–108; RESP 16–20; TEMP 98.1–98.2; O2SAT 94–97
[2024-07-26 04:36] LABS: HEMATOCRIT 32.7 % (36-48); MEAN CORPUSCULAR HEMOGLOBIN 30.5 pg (27.0-33.0); MEAN CORPUSCULAR HGB CONC 33.6 g/dL (32.0-36.0); MEAN CORPUSCULAR VOLUME 90.6 fL (79-99); RED BLOOD CELL COUNT(AUTO) 3.61 MIL/uL (4.00-5.50); RED CELL DISTRIBUTION WIDTH 11.8 % (11.0-15.5); WHITE BLOOD COUNT (AUTO) 4.8 K/uL (4.8-10.8)
[2024-07-26 05:03] LABS: CREATININE 0.6 mg/dL (0.5-1.0)
[2024-07-26] MEDS ORDERED: LEVO750T40 PO (08:32)
[2024-07-26] MEDS ORDERED: BROM118S48 PO (08:45)
[2024-07-26] MEDS ORDERED: LACT1TAB26 PO ×2 (08:45)
[2024-07-26] MEDS: MAGNESIUM 2GM PREMIX 50ML 50 ML IV SCH (09:19)
--- NOTE | 2024-07-26 11:38 | DS ---
Discharge Summary Hospital Course Summary: This is a 33-year-old with no significant past medical history who presented to the ER with chief complaint of cough, congestion, fevers for the past six days. Patient has been having productive cough with pleuritic chest pain which has been nonresolving. Oral intake has been poor and patient reports having nausea at home. She reports that her child was recently sick with mononucleosis. She denies previous history of pneumonia or pulmonary comorbidities. Reports having generalized fatigue, malaise, and asthenia. She has been having fevers daily. Denies any pets at home On presentation to the hospital, patient was noted to be febrile with T-max of 103, heart rate of 148, and blood pressure of 124/82. Labs on presentation showed WBC count of 7700, hemoglobin of 14.1, platelet count of 417305. CMP on presentation showed sodium of 133, potassium 3.9, chloride of 96, creatinine of 0.8, and normal liver function test. Chest x-ray showed significant right lower lobe infiltrates concerning for developing community-acquired pneumonia, patient also noted to have patchy infiltrate of the left upper lobe. Patient will be admitted for further management of multifocal community-acquired pneumonia with underlying sepsis. Patient will receive IV fluid resuscitation, broad-spectrum antibiotics, we will also request consultation with pulmonology this admission. Patient was evaluated with mountain guide who started patient on nebulizer so tment, agreed on IV antibiotics. At this time, her respiratory status improved. Microbiology reported sputum culture no growth, blood culture no growth x3 days, she was negative which Legionella. Patient is afebrile. Her labs reviewed, WBC 4.8, chemistry reviewed, her magnesium level was 1.7 already been repleted but repeated level today is still 1.7, we will replace per protocol given she received a one dose of 2 g magnesium yesterday. Her inflammatory markers have been improving, CRP was 139.3 On admission now 93.4. Patient does not have PCP hence nurse we will provide list for PCP for the patient. We will also advised to follow up with mountain guide one week. Patient will be discharged with Levaquin 750 mg p.o. x7 days, she still has cough so she will be discharged with Bromfed, and with loose stools, patient will be also discharged with probiotics. All were discussed with the patient and at bedside. They verbalized understanding. Patient is stable to be discharged home today. Dental Scheduling Coordinator(s): Dr. Valerio- mountain guide Procedure(s): [facility] [address] [place] [address] IMAGING REPORT Signed PATIENT: VIOLET GEORGES MR#: [id number] : 1990 SEX: F AGE: 33 LOCATION: 2AH ORDER 2300 STATUS: ADM IN REPORT#: [id number] SERVICE 0600 REASON: assess for any interval worsening pnuemonia or pleural effusion ORDERING PHYSICIAN: TORRI TODD MD PROCEDURE: CXR1VW - CHEST 1VW CHEST 1VW HISTORY: Pneumonia COMPARISON: 07/23/2024 FINDINGS: A frontal projection of the chest was obtained. Bilateral pulmonary infiltrates are seen. The heart is normal in size. No evidence of aortic calcification is seen. IMPRESSION: 1. Bilateral pulmonary infiltrates are seen. DICTATED BY: TOMASA ROLDAN MD DATE: 07/24/241154 ELECTRONICALLY SIGNED BY: TOMASA ROLDAN MD DATE: 07/24/24 115 [facility] [address] [place] [address] IMAGING REPORT Signed PATIENT: VIOLET GEORGES MR#: [id number] : 1990 SEX: F AGE: 33 LOCATION: EDH ORDER 0902 STATUS: REG ER REPORT#: [id number] SERVICE 0900 REASON: fever ORDERING PHYSICIAN: RONN BENNETT MD PROCEDURE: CXR1VW - CHEST 1VW CHEST 1VW HISTORY: Fever COMPARISON: None FINDINGS: A frontal projection of the chest was obtained. Left perihilar and right lower lobe pulmonary infiltrates are seen. There is dextroscoliosis. Hyperexpansion of both lungs are seen. The heart is borderline enlarged. No evidence of aortic calcification is seen. IMPRESSION: 1. Left perihilar and right lower lobe pulmonary infiltrates. DICTATED BY: TOMASA ROLDAN MD DATE: 07/23/241124 ELECTRONICALLY SIGNED BY: TOMASA ROLDAN MD DATE: 07/23/241127 Assessment/Plan: ASSESSMENT: Sepsis secondary to multifocal community-acquired pneumonia, POA Acute hypoxemic respiratory failure, POA Multifocal community-acquired pneumonia (R>L), POA Hyponatremia, POA Dehydration, POA PLAN: Patient has been downgraded to medical floor Continue with IV fluids We will discontinue azithromycin IV but continue with Rocephin IV We will start patient on azithromycin 500 mg p.o. x2 days We will continue recommendation from pulmonology continue monitor closely for development of complications of parapneumonic effusion etc. continue patient on scheduled Pulmicort and nebulizers q.6 hours p.r.n. All labs will be repeated in the morning Anticipate hospitalization for 48-72 hours pending cultures and clinical improvement of pneumonia and sepsis Prophylaxis Protonix, DVT prophylaxis with Lovenox Patient was seen in and examined in her room, discussed plan with Dr. Holley during rounds, above plan was formulated Discharge Instructions: Patient will follow-up with a PCP in 2-3 days [facility] Leader in one week She will be discharged with Levaquin 750 mg p.o. daily x7 days, Bromfed5 mL q.i.d. as needed for cough, probiotics daily for gut health Home Medications: Discontinued Reported Medications Vit #76/Iron,Carb/FA (Prenatabs Rx Tablet) 1 Each Tablet, 1 EACH PO DAILY, TAB 05/12/15 New Medications: D-Methorphan Hb/P-Epd HCl/Bpm (Bromfed Dm Cough Syrup) 2 Mg-30 Mg-10 Mg/5 Ml Syrup 118 ML PO QIDP PRN for COUGH, #1 BOTTLE 0 Refills Lactobacillus Acidophilus (Probiotic Acidophilus) 2 Billion Cell Tablet 1 TAB PO BID for 30 Days, #60 TAB 0 Refills Lactobacillus Acidophilus (Probiotic Acidophilus) 2 Billion Cell Tablet 1 TAB PO DAILY for 30 Days, #30 TAB 0 Refills Levofloxacin (Levofloxacin) 750 Mg Tablet 1 TAB PO DAILY for 7 Days, #7 TAB 0 Refills Time spent arranging discharge: 31-60 minutes ATTESTATION BY PHYSICIAN I have seen and examined the patient. I reviewed the documentation, medical decision making, and treatment plan as noted by the mid-level provider above. I agree with the findings and plan of care. KATELYN HOLLEY MD, [facility] Jul 26, 2024 11:38
--- NOTE | 2024-07-26 12:56 | NUR ---
DISCHARGE PT DC'D HOME WITH FAMILY VIA WHEELCHAIR, IV REMOVED, ALL QUESTIONS ANSWERED AT BEDSIDE, NO SIGNS OF DISTRESS. VS STABLE. PT AOX4 NO CONCERNS AT THIS TIME
[2024-07-27 16:11] LABS: CHLAM.PNEUMONIAE IGM TITER <1:10 (Neg:<1:10)
[2024-07-27 23:07] LABS: MYCOPLASMA AB IGM <770 U/mL (0-769)
== END 2024-07-26 13:00 | disposition home or self-care (01) | DRG 871 ==
LOC: EDH 08:26 → EDHIP 08:27 → 2AH 17:50 → 3DH 07-24 23:37
PROVIDERS: ADMIT Internal Medicine; ATTEND Internal Medicine
DX: A41.9 Sepsis, unspecified organism (principal); J18.9 Pneumonia, unspecified organism; J96.01 Acute respiratory failure with hypoxia; E87.1 Hypo-osmolality and hyponatremia; E86.0 Dehydration; Z79.899 Other long term (current) drug therapy
CPT/HCPCS: 36415; 71045; 80048; 80053; 80076; 81001; 81025; 83036; 83605; 83735; 84145; 84443; 85025; 85027; 85610; 85651; 85730; 86140; 86308; 86632; 86701; 86738; 87040; 87071; 87205; 87390; 87426; 87449; 87804; 93005; 94640; 94664; 94760; 96365; 96366; 96375; 99285; G0378; J0456; J0696; J1650; J1885; J2405; J2470; J3475; J7030